=== PATIENT | female | born 1990 | race Caucasian/White ===

== ENCOUNTER 2017-08-27 22:09 | Outpatient (CLI) | payer OTHER ==
[~2017-08-27] VITALS: Ht 162.6 cm; Wt 100.1 kg
[2017-08-27 22:39] VITALS: Ht 162.6 cm; Wt 100.1 kg
[2017-08-27 22:40] VITALS: BP 129/80; PULSE 89; RESP 18
[2017-08-27] MEDS ORDERED: PREN-93 PO (22:43)
--- NOTE | 2017-08-28 00:22 | RADRPT ---
PROCEDURE: ULTRASOUND BIOPHYSICAL PROFILE CLINICAL INDICATION: 26-year-old female with contractions for viability. TECHNIQUE: Multiple sonographic images were obtained in order to perform a biophysical profile The images were reviewed on a PACS workstation. COMPARISON: None. FINDINGS: There is a single viable intrauterine gestation. There is a vertex presentation. Cardiac activity i s present at 141 beats per minute. The placenta is anterior. The results of the biophysical profile are as follows: breathing movement = 2/2 Gross body movement = 2/2 tone = 2/2 Qualitative amniotic fluid volume = 2/2 Amniotic fluid index equals 6.8 cm. This yields a biophysical profile score of 8/8. IMPRESSION: 1. Biophysical profile score is 8/8. 2. Amniotic fluid index equals 6.8 cm. .Yohannes Echeverria MD, Date Time Electronically viewed and signed by .Yohannes Echeverria MD, on 08/28/2017 01:00 .M/
[2017-08-28 00:26] LABS: ADD UMIC NO; UR ASCORBIC ACID NEGATIVE (NEGATIVE); UR BILIRUBIN (Dip) NEGATIVE (NEGATIVE); UR BLOOD (Dip) NEGATIVE (NEGATIVE); UR CLARITY CLEAR (CLEAR); UR COLOR YELLOW (YELLOW); UR GLUCOSE (Dip) NEGATIVE (NEGATIVE); UR KETONES (Dip) NEGATIVE (NEGATIVE); UR LEUKOCYTE ESTERASE (Dip) NEGATIVE Leu/ul (NEGATIVE); UR NITRITE (Dip) NEGATIVE (NEGATIVE); UR SPECIFIC GRAVITY (Dip) 1.019 (1.003-1.030); UR TOTAL PROTEIN (Dip) NEGATIVE (NEGATIVE); UR UROBILINOGEN (Dip) 1+ mg/dL (NEGATIVE)
--- NOTE | 2017-08-28 02:29 | PN ---
Triage Information Date/Time 08/28/17 0220 Reason for visit: Abd/pelvic pain Weeks of Gestation [id number] /Para Diabetes: none Hypertention: none Additional information vagianl spotting Objective Vital Signs Date Time Temp Pulse Resp B/P Pulse Ox O2 Delivery O2 Flow Rate FiO2 08/27/17 22:40 98.5 89 18 129/80 Room Air Heart Rate: 140's Contractions: >10 Minutes Apart Exam / Results/Medications Results 24 hrs Laboratory Tests Test 08/27/17 23:00 Urine Color YELLOW Urine Clarity CLEAR Urine pH 6.0 Urine Specific [place] 1.019 Urine Ketones NEGATIVE Urine Nitrite NEGATIVE Urine Bilirubin NEGATIVE Urine Urobilinogen 1+ H Urine Leukocyte Esterase NEGATIVE Urine Hemoglobin NEGATIVE Urine Glucose NEGATIVE Urine Total Protein NEGATIVE Imaging Results [id number] CECILIA 6.8 BPP 04/20 Disposition: Discharge Assessment/Plan IUP 39w1d pelvic pain oligohydramnios rene RTH in 3d ( ) for repeat CECILIA LAURA RAUSCH MD Aug 28, 2017 02:29
--- NOTE | 2017-08-28 09:59 | RADRPT ---
PROCEDURE: US OB. US OB Estimated Weight CLINICAL INDICATION: CONTRACTIONS TECHNIQUE: Multiple sonographic images of the pelvis were obtained. The images were reviewed on a PACS workstation. COMPARISON: No prior studies are available for comparison. FINDINGS: There is a single viable intrauterine gestation. Cardiac activity is present with 156 beats per min bakari. There is a vertex presentation. Measurements were made in order to determine age. The results are as follows: BPD =8.7 cm. HC =32.0 cm. AC =31.6 cm. FL =7.2 cm. Estimated gestational age of approximately 35 weeks and 6 days' The estimated date of delivery is 09/25/2016. Estimated delivery date by last menstrual period is 11/03/2016.. The EFW = 2774 grams, 6th percentile . The placenta is anterior, grade II. There is no evidence for an abruption or placenta previa. There are no adnexal masses. IMPRESSION: Single viable intrauterine gestation of approximately 35 weeks and 6 days. The estimated date of de livery is 09/25/2017 . RPTAT: HBST .Diego Alaniz MD, Date Time Electronically viewed and signed by .Diego Alaniz MD, MD on 08/28/2017 01:06 .T/
== END 2017-08-28 01:45 | disposition home or self-care (01) ==
LOC: OBT 22:09 → L-D 22:10 → OBT 08-28 01:45
PROVIDERS: ATTEND Obstetrics & Gynecology
DX: O20.8 Other hemorrhage in early pregnancy (principal); Z3A.39 39 weeks gestation of pregnancy; O26.893 Other specified pregnancy related conditions, third trimester; R10.2 Pelvic and perineal pain
CPT/HCPCS: 76815; 76818; 81003; 87086; Z7500; G0463

== ENCOUNTER 2017-08-28 05:34 | Inpatient (IN) | payer OTHER ==
[~2017-08-28] VITALS: Ht 162.6 cm; Wt 100.1 kg
[~2017-08-28 05:34] MED LIST: PREN-93 PO
[2017-08-28] MEDS ORDERED: OXYTOCIN 30 UNITS/LR 500 ML IV ONE ×2 (05:46→07:05)
[2017-08-28] MEDS ORDERED: LIDOCAINE 1% (MPF) 30 ML INJ ONE (05:48)
--- NOTE | 2017-08-28 07:01 | HP ---
Date/Time of Note Date/Time of Note DATE: 08/28/17 TIME: 06:46 OB - History Hx of Present Free Text/Dictation 26 y.o at 39w2d in active labor with delivery was imminent ,srom just prior to reach the triage her care was unevenful admitted for expectant management Chief Complaint: uc, srom Estimated Due Date: Sep 02, 2017 : 2 Para: 1 Spontaneous : 0 Therapeutic : 0 Care: Good Care Ultrasounds: Normal mid trimester US Obstetrical Complications: None Medical Complications: None Past Family/Social History * Past Medical, Surgical, Family and Obstetric Histories reviewed from chart. Blood Type: O+ Rubella: immune RPR/VDRL: Negative GBS Status: Negative HBsAG: Negative OB Admission Exam Physical Exam HEENT: WNL Heart: Rhythm Normal Lungs: Clear, Equal Abdomen: WNL Extremities: Normal Reflexes: Normal Cervical Dilatation: 10cm Effacement: 100% Station: +1 Membranes: Ruptured Amniotic Fluid: Clear Heart Rate: 140's Accelerations: Accelerations Present Decelerations: No Decelerations Varibility: Moderate Contractions on Admission: < 5 Minutes Apart Intensity: Firm OB Assessment/Plan Reason for admission: active labor Other Assessment: IUP 39w2d Plan: Expectant Management LAURA RAUSCH MD Aug 28, 2017 06:58
--- NOTE | 2017-08-28 07:05 | LDN ---
Date/Time of Note Date/Time of Note DATE: 08/28/17 TIME: 07:02 Delivery Summary Weeks of Gestation 39ww2d Placenta Delivered: Spontaneously Meconium: none Episiotomy: No Perineal laceration: 2 Laceration repair: 00ch gut Anesthesia type: Local Estimated blood loss: 300 Sponge & Needle done & correct: Yes All needle counts correct: Yes Any foreign bodies felt in the: No Problems: Infant Delivery Information Sex Infant Sex: male Apgars 1 Minute: 9 5 Minute: 9 Suctioning Nose & mouth suctioned at maggie: Yes Delee suction performed: No Umbilical Cord Umbilical cord with: 3 Vessels Cord presentations: no nuchal cord Cord Blood was obtained: Yes Mother & Baby Disposition Disposition Mom & Baby to Maternity; Good: Yes Mom transferred to: Other Baby to NICU: No LAURA RAUSCH MD Aug 28, 2017 07:05
[2017-08-28 07:25] VITALS: Ht 162.6 cm; Wt 100.1 kg
[2017-08-28] MEDS ORDERED: LACTATED RINGER'S 1,000 ML IV SCH (07:28)
[2017-08-28] MEDS ORDERED: OXYTOCIN 30 UNITS/LR 500 ML IV PRN ×2 (07:30→15:00)
[2017-08-28] MEDS ORDERED: MISOPROSTOL 200 MCG TAB PR PRN ×2 (07:30→15:00)
[2017-08-28] MEDS ORDERED: IBUPROFEN 600 MG TAB PO PRN (07:30)
[2017-08-28] MEDS ORDERED: LIDOCAINE 1% (MPF) 30 ML INJ INJ PRN (07:30)
[2017-08-28] MEDS ORDERED: HYDROCODONE/APAP (5/325) TAB PO PRN (07:30)
[2017-08-28] MEDS ORDERED: OXYTOCIN 30 UNITS/LR 500 ML IV SCH ×3 (07:30)
[2017-08-28] MEDS ORDERED: BUTORPHANOL 2 MG INJ IV PRN ×2 (07:30)
[2017-08-28] MEDS ORDERED: CARBOPROST 250 MCG INJ IM PRN ×2 (07:30→15:00)
[2017-08-28] MEDS ORDERED: METHYLERGONOVINE 0.2 MG INJ IM PRN ×2 (07:30→15:00)
[2017-08-28 09:00] VITALS: BP 119/66; PULSE 72; RESP 18
[2017-08-28 12:11] VITALS: BP 129/79; PULSE 86; RESP 20
[2017-08-28] MEDS ORDERED: OXYCODONE/ASPIRIN (4.88/325) TAB PO PRN ×2 (15:00)
[2017-08-28] MEDS ORDERED: LANOLIN 7 GM TUBE TOP PRN (15:00)
[2017-08-28] MEDS ORDERED: WITCH HAZEL/GLYCERIN PAD PR PRN (15:00)
[2017-08-28] MEDS ORDERED: BENZOCAINE 20% 56 ML SPRAY TOP PRN (15:00)
[2017-08-28] MEDS ORDERED: ZOLPIDEM 5 MG TAB PO PRN (15:00)
[2017-08-28 15:30] VITALS: BP_SYST 86; PULSE 86; RESP 18
[2017-08-28 16:22] LABS: BASOPHILS % 0.2 % (0.0-2.0); EOSINOPHILS # 0.1 10^3/ul (0.0-0.5); EOSINOPHILS % 0.6 % (0.0-7.0); HEMATOCRIT 33.8 % (37.0-47.0); HEMOGLOBIN 11.3 g/dl (12.0-16.0); LYMPHOCYTES # 1.5 10^3/ul (0.8-2.9); LYMPHOCYTES % 11.6 % (15.0-51.0); MEAN CORPUSCULAR HEMOGLOBIN 27.6 pg (29.0-33.0); MEAN CORPUSCULAR HGB CONC 33.4 g/dl (32.0-37.0); MEAN CORPUSCULAR VOLUME 82.6 fl (82.0-101.0); MEAN PLATELET VOLUME 12.4 fl (7.4-10.4); MONOCYTE # 0.7 10^3/ul (0.3-0.9); MONOCYTES % 5.7 % (0.0-11.0); NEUTROPHIL # 10.2 10^3/ul (1.6-7.5); NEUTROPHILS % 80.9 % (39.0-77.0); PLATELET COUNT 209 10^3/UL (140-415); RED BLOOD COUNT 4.09 10^6/ul (4.20-5.40); RED CELL DISTRIBUTION WIDTH 17.8 % (11.5-14.5); WHITE BLOOD COUNT 12.5 10^3/ul (4.8-10.8)
[2017-08-28 16:40] LABS: INR 0.82; PROTIME 11.3 Sec (11.9-14.9); PT RATIO 0.9
[2017-08-28 16:41] LABS: PARTIAL THROMBOPLASTIN TIME 28.1 Sec (25.0-35.0)
[2017-08-28] MEDS: IBUPROFEN 600 MG TAB PO SCH (17:50)
[2017-08-28 20:00] VITALS: BP 119/65; PULSE 83; RESP 19
[2017-08-28] MEDS: SENNA/DOCUSATE NA (8.6MG/50MG) TAB PO SCH (20:59)
[2017-08-29 00:30] VITALS: BP 119/65; PULSE 83; RESP 19
[2017-08-29] MEDS: IBUPROFEN 600 MG TAB PO SCH ×4 (00:35→17:11)
[2017-08-29 04:25] VITALS: BP 123/68; PULSE 87; RESP 19
[2017-08-29 08:00] VITALS: BP 126/83; PULSE 72; RESP 18
[2017-08-29] MEDS: SENNA/DOCUSATE NA (8.6MG/50MG) TAB PO SCH ×2 (08:18→21:56)
[2017-08-29 09:17] LABS: BASOPHILS % 0.3 % (0.0-2.0); EOSINOPHILS # 0.2 10^3/ul (0.0-0.5); EOSINOPHILS % 1.9 % (0.0-7.0); HEMATOCRIT 33.5 % (37.0-47.0); HEMOGLOBIN 11.1 g/dl (12.0-16.0); LYMPHOCYTES # 2.4 10^3/ul (0.8-2.9); LYMPHOCYTES % 19.7 % (15.0-51.0); MEAN CORPUSCULAR HEMOGLOBIN 27.8 pg (29.0-33.0); MEAN CORPUSCULAR HGB CONC 33.1 g/dl (32.0-37.0); MEAN CORPUSCULAR VOLUME 83.8 fl (82.0-101.0); MEAN PLATELET VOLUME 12.1 fl (7.4-10.4); MONOCYTE # 0.8 10^3/ul (0.3-0.9); MONOCYTES % 6.4 % (0.0-11.0); NEUTROPHIL # 8.5 10^3/ul (1.6-7.5); NEUTROPHILS % 69.2 % (39.0-77.0); PLATELET COUNT 204 10^3/UL (140-415); RED CELL DISTRIBUTION WIDTH 18.1 % (11.5-14.5); WHITE BLOOD COUNT 12.3 10^3/ul (4.8-10.8)
[2017-08-29] MEDS ORDERED: INFLUENZA VIRUS VACCINE 0.5 ML SYG IM* ONE (11:00)
[2017-08-29 16:00] VITALS: BP 120/85; PULSE 84; RESP 16
[2017-08-29 16:15] VITALS: BP 129/85; RESP 16
[2017-08-29 20:00] VITALS: BP 108/59; PULSE 83; RESP 19
[2017-08-30] MEDS: IBUPROFEN 600 MG TAB PO SCH ×3 (00:53→11:36)
[2017-08-30 04:20] VITALS: BP 105/55; PULSE 83; RESP 18
[2017-08-30 08:00] VITALS: BP 124/68; PULSE 80; RESP 17
[2017-08-30] MEDS ORDERED: DIPHTH/TET/ACEL PERTUSS (ADULT) 0.5 ML VIAL IM* ONE (09:00)
[2017-08-30] MEDS: SENNA/DOCUSATE NA (8.6MG/50MG) TAB PO SCH (09:20)
== END 2017-08-30 13:45 | disposition home or self-care (01) | DRG 775 ==
LOC: OBT 05:34 → L-D 05:35 → OBT 05:38 → PP1 15:34
PROVIDERS: ADMIT Obstetrics & Gynecology; ATTEND Obstetrics & Gynecology
PROC: 10E0XZZ Delivery of Products of Conception, External Approach (ICD-10-PCS; principal; 2017-08-28)
PROC: 0KQM0ZZ Repair Perineum Muscle, Open Approach (ICD-10-PCS; 2017-08-28)
PROC: 3E0234Z Introduction of Serum, Toxoid and Vaccine into Muscle, Percutaneous Approach (ICD-10-PCS; 2017-08-29)
PROC: 3E0234Z Introduction of Serum, Toxoid and Vaccine into Muscle, Percutaneous Approach (ICD-10-PCS; 2017-08-30)
DX: O70.1 Second degree perineal laceration during delivery (principal); Z37.0 Single live birth; Z23 Encounter for immunization; Z3A.39 39 weeks gestation of pregnancy
CPT/HCPCS: 85025; 85610; 85730; 86592; 86850; 86900; 86901; 87340; 90686; 90715; 99464; G0463; J2590; J7120